=== PATIENT | male | born 1955 | race Hispanic/Latino ===

== ENCOUNTER 2017-08-25 16:28 | Inpatient (IN) | payer BC ==
[~2017-08-25] VITALS: Ht 185.4 cm; Wt 118.8 kg
[2017-08-25] MEDS ORDERED: HYDRALAZINE HCL 20 MG/ML VIAL IV ONE (16:45)
[2017-08-25] MEDS ORDERED: LIDOCAINE JELLY 2% 10ML URO-JET ONE (16:55)
[2017-08-25] MEDS ORDERED: HYDROMORPHONE 1MG/1ML INJ IV STA ×2 (17:05→19:17)
[2017-08-25 17:21] LABS: BASOPHILS # (AUTO) 0.1 (0.0-0.1); BASOPHILS % 0.3 % (0.0-1.0); EOSINOPHILS # (AUTO) 0.1 (0.0-0.4); EOSINOPHILS % 0.4 % (0.0-6.0); HEMATOCRIT 48.4 % (38.2-49.6); HEMOGLOBIN 16.5 g/dL (14.0-18.0); LYMPHOCYTES % 5.9 % (18.0-39.1); MEAN CORPUSCULAR HEMOGLOBIN 30.3 pg (28-32); MEAN CORPUSCULAR HGB CONC 34.1 g/dL (31-35); MEAN CORPUSCULAR VOLUME 88.8 fL (81-99); MONOCYTES # (AUTO) 2.1 (0.2-0.8); MONOCYTES % 12.6 % (4.4-11.3); NEUTROPHILS # (AUTO) 13.4 (2.1-6.9); NEUTROPHILS % 79.9 % (38.7-80.0); PLATELET COUNT 190 x10e3/uL (140-360); RED BLOOD COUNT 5.45 x10e6/uL (4.3-5.7)
[2017-08-25 17:22] LABS: CLARITY,URINE SL CLOUDY (CLEAR); COLOR,URINE YELLOW (YELLOW); KETONES,URINE NEGATIVE (NEGATIVE); LEUKOCYTE ESTERASE ,URINE 2+ (NEGATIVE); NITRITE,URINE NEGATIVE (NEGATIVE); URINE UROBILINOGEN 1 mg/dL (0.2 - 1)
[2017-08-25] MEDS ORDERED: SODIUM CHLORIDE 0.9% 1000ML 1,000 ML ONE (17:22)
[2017-08-25 17:23] LABS: BILIRUBIN,URINE 1+ (NEGATIVE); PROTEIN,URINE DIPSTICK 1+ (NEGATIVE)
[2017-08-25 17:35] LABS: ANION GAP 11.2 mmol/L (8-16); CALCIUM 8.8 mg/dL (8.4-10.2); CREATININE, SERUM 1.36 mg/dL (0.72-1.25); POTASSIUM 4.2 mmol/L (3.5-5.1)
[2017-08-25 17:37] LABS: EPITHELIAL CELLS,URINE RARE /LPF; WBC,URINE (MAN) 21-50 /HPF (0-5)
[2017-08-25 18:22] LABS: LYMPHOCYTES % (MANUAL) 4 % (19-48); MONOCYTES % (MANUAL) 6 % (3.4-9.0); NEUTROPHILS % (MANUAL) 87 % (40-74); PLATELET ESTIMATE ADEQUATE; PLATELET MORPHOLOGY COMMENT NORMAL; RBC MORPHOLOGY COMMENT NORMAL
--- NOTE | 2017-08-25 19:10 | Diagnostic Imaging Report ---
PROCEDURE:CT ABDOMEN AND PELVIS WITH CONTRAST COMPARISON:None. INDICATIONS:BLADDER PAIN, UNABLE TO URINATE TECHNIQUE: Multidetector CT scanning of the abdomen and pelvis was performed after the administration of 100 cc of nonionic contrast. Coronal and sagittal reformations were obtained. Routine protocol performed. DLP: 806.33 mGy*cm FINDINGS: Lung bases: Clear. There are small fat containing bilateral Bochdalek hernias. Visualized portion of the mediastinum is unremarkable. Liver: Diffusely fatty replaced. The right lobe measures 20 cm in length. No mass. Biliary: Gallbladder and biliary tree are normal. Spleen: Normal in size and attenuation without mass. Pancreas: Mild fatty atrophy without mass or ductal dilatation. Adrenal Glands: No mass. Kidneys: Symmetric enhancement. No hydronephrosis or perinephric inflammation. No evidence of mass. Gastrointestinal: The stomach is collapsed. Small bowel is normal in diameter with normal wall thickness. A few diverticula are present in the colon. The appendix is normal. Vasculature: Aorta IVC are normal in diameter. No atherosclerotic calcifications. Peritoneum/Retroperitoneum: No lymphadenopathy, free fluid, or fluid collection. Bladder: Collapsed around a Marte catheter. The sesay are diffusely thickened. No ureteral dilatation or periureteral inflammation. The prostate gland measures 6.5 x 0.3 x 7.6 cm. There is mild edema associated with the seminal vesicles without enhancing fluid collection. Musculoskeletal: There are mild degenerative changes of the spine consistent with age. No lytic or blastic lesions. The soft tissues are unremarkable. CONCLUSION: 1. Marked prostate hypertrophy and bladder wall thickening suggestive of outlet reduction. This could be the result of prostate hypertrophy with superimposed prostatitis and seminal vesiculitis. Intraluminal bladder mass cannot be excluded. 2. No hydroureteronephrosis. 3. Hepatic steatosis and hepatomegaly. 4. No bowel obstruction or inflammation. Normal appendix. Dictated by: Ganesh Christie M.D. on 08/25/2017 at 19:09 Electronically approved by: Ganesh Christie M.D. on 08/25/2017 at 19:09
--- OUTSIDE RECORDS SUMMARY | 2017-08-25 19:40 | XMS REPORT ---
Author Author [facility] Address Unknown Phone Unavailable Care Team Providers Care Engineering Director Name Role Phone ANGEL CASTILLO Unavailable Unavailable Problems This patient has no known problems. Allergies, Adverse Reactions, Alerts This patient has no known allergies or adverse reactions. Medications This patient has no known medications. Results Test Description Test Time Test Comments Text Results Atomic Results Result Comments CT ABDOMEN/PELVIS W [place] [address] Patient Name: ANGEL TENA MR #: [id number] : 1955 Age/Sex: 62/M Req #: [id number] Adm Physician: Ordered by: PRISCILA NEAL HANDLE MAKER Report #: [id number] Location: ER Room/Bed: Procedure: [id number] CT/CT ABDOMEN/PELVIS W Exam Date: 08/25/17 Exam Time: 1826 REPORT STATUS: Signed PROCEDURE: CT ABDOMEN AND PELVIS WITH CONTRAST COMPARISON: None. INDICATIONS: BLADDER PAIN, UNABLE TO URINATE TECHNIQUE: Multidetector CT scanning of the abdomen and pelvis was performed after the administration of 100 cc of nonionic contrast. Coronal and sagittal reformations were obtained. Routine protocol performed. DLP: 806.33 mGy*cm FINDINGS: Lung bases: Clear. There are small fat containing bilateral Bochdalek hernias. Visualized portion of the mediastinum is unremarkable. Liver: Diffusely fatty replaced. The right lobe measures 20 cm in length. No mass. Biliary: Gallbladder and biliary tree are normal. Spleen: Normal in size and attenuation without mass. Pancreas: Mild fatty atrophy without mass or ductal dilatation. Adrenal Glands: No mass. Kidneys: Symmetric enhancement. No hydronephrosis or perinephric inflammation. No evidence of mass. Gastrointestinal: The stomach is collapsed. Small bowel is normal in diameter with normal wall thickness. A few diverticula are present in the colon. The appendix is normal. Vasculature: Aorta IVC are normal in diameter. No atherosclerotic calcifications. Peritoneum/Retroperitoneum : No lymphadenopathy, free fluid, or fluid collection. Bladder: Collapsed around a Marte catheter. The sesay are diffusely thickened. No ureteral dilatation or periureteral inflammation. The prostate gland measures 6.5 x 0.3 x 7.6 cm. There is mild edema associated with the seminal vesicles without enhancing fluid collection. Musculoskeletal: There are mild degenerative changes of the spine consistent with age. No lytic or blastic lesions. The soft tissues are unremarkable. CONCLUSION: 1. Marked prostate hypertrophy and bladder wall thickening suggestive of outlet reduction. This could be the result of prostate hypertrophy with superimposed prostatitis and seminal vesiculitis. Intraluminal bladder mass cannot be excluded. 2. No hydroureteronephrosis. 3. Hepatic steatosis and hepatomegaly. 4. No bowel obstruction or inflammation. Normal appendix. Dictated by: Mary Christie M.D. on 08/25/2017 at 19:09 Electronically approved by: Mary Christie M.D. on 08/25/2017 at 19:09 Dictated By: MARY CHRISTIE MD 08 Transcribed By: HECTOR on 08/25/171908 COPY TO: PRISCILA NEAL NP CR - XRAY ARTHROGRAM SHOULDER LT / INJECTION CLINICAL INDICATION: M75.122 Complete rotatr-cuff tear/ruptr of left shoulder, not traumaTECHNIQUE: Risks and benefits of the examination were discussed with the patient. Informed consent was obtained. The patient was prepped and draped in the usual sterile fashion. Local anesthesia was affected with lidocaine 1% without epinephrine, administered subcutaneously. A 25 gauge needle was directed into the left glenohumeral joint under fluoroscopic guidance via anterior approach. A small amount of nonionic contrast was injected, demonstrating intra-articular position of needle tip. Subsequently, approximately 10 ml Gadolinium solution ( gadolinium in normal saline, 1:200) was injected into the joint without incident. Multiple spot films were obtained. No complications were encountered.Total fluoroscopy time: 0.2 minutesTotal number images: SixFINDINGS: COMPARISON: NoneContrast communication between the glenohumeral joint and subacromial subdeltoid bursa is present.IMPRESSION:Technically successful intra- articular gadolinium injection, left shoulder. Contrast communication between the glenohumeral joint and subacromial subdeltoid bursa, consistent with full- thickness rotator cuff tear.Post arthrogram MRI of left shoulder is reported separately. MRI SHOULDER JNT LT W CLINICAL INDICATION: M75.102 Unsp rotatr-cuff tear/ruptr of left shoulder, not traumaMODALITY: Avanto 1.5 Jenniffer 18 channel MRITECHNIQUE: Multiplanar multisequence MRI of the left shoulder was performed following intra-articular gadolinium injection. Arthrogram is reported separately .IMPRESSION:1. Mild to moderate supraspinatus tendinosis with superimposed 8.5 mm diameter full-thickness tear at the anterior tendon footprint.2. Mild acromioclavicular arthrosis without undersurface spurring.FINDINGS:COMPARISON: None.OSSEOUS ACROMIAL OUTLET: Type 2 acromion is present, with mild lateral downsloping. Mild acromioclavicular arthrosis is present without undersurface spurring.ROTATOR CUFF: Mild to moderate supraspinatus tendinosis is present. Full-thickness tear is present involving the anterior tendon footprint, measuring 8.5 mm in width with 8.5 mm gap. Posterior fibers of the tendon remain intact.. Infraspinatus, teres minor and subscapularis tendons are intact.BICEPS TENDON, LABRUM AND CAPSULAR STRUCTURES: Emir appear intact. Long head biceps tendon is intact. The biceps anchor appears unremarkable.OSSEOUS STRUCTURES: No fractures or destructive osseous lesions are detected. Marrow signal is unremarkable.MISCELLANEOUS FINDINGS: None.
[2017-08-25] MEDS: CEFTRIAXONE SOD 1 GM VIAL IV SCH (19:51)
[2017-08-25] MEDS ORDERED: IOPAMIDOL 370 MG/ML 200 ML INFUS..BTL INJ ONE (20:33)
[2017-08-25] MEDS ORDERED: SODIUM CHLORIDE 0.9% 50ML 50 ML ONE (20:33)
[2017-08-25] MEDS: OXYBUTYNIN CHLORIDE 5 MG TAB PO SCH (21:03)
[2017-08-25 21:30] VITALS: BP 125/56
[2017-08-25 22:12] VITALS: BP 125/56
[2017-08-25] MEDS: SODIUM CHLORIDE 0.9% 1000ML 1,000 ML IV SCH (22:52)
[2017-08-25] MEDS: MORPHINE SULFATE 2 MG/ML SYR IV PRN (22:59)
[2017-08-25] MEDS: ACETAMINOPHEN 325 MG TAB PO PRN (23:22)
[2017-08-26] VITALS (8 sets, daily range): BP systolic 94–154; BP diastolic 63–84
[2017-08-26] MEDS: MORPHINE SULFATE 2 MG/ML SYR IV PRN ×2 (04:59→11:50)
[2017-08-26] MEDS: SODIUM CHLORIDE 0.9% 1000ML 1,000 ML IV SCH ×3 (06:36→21:01)
--- NOTE | 2017-08-26 07:30 | History and Physical ---
A 62-year-old male comes in with pain on urination and also fever and chills. HISTORY OF PRESENT ILLNESS: This is Mr. Colvin with a history of diabetes mellitus, hypertension, who was in his usual state of health until 2 days prior to admission. The patient started to have chills and fever, and temperature of 102. Came in to see his primary care physician, and then came into the emergency room and was found to have acute prostatitis and was admitted for the same. PAST MEDICAL HISTORY: History of diabetes mellitus, history of hypertension. Also, includes epididymitis and prostatitis. He also has a history of benign prostatic hypertrophy. MEDICATIONS: He takes at home are metformin is what he knows. He also takes antihypertensive, which he does not know. SURGICAL HISTORY: History of neck surgery, right hand surgery, right knee surgery. FAMILY HISTORY: Diabetes in mother and sister. Congestive heart failure in mother and cardiac disease in father. ALLERGIES: NO DRUG ALLERGIES KNOWN. REVIEW OF SYSTEMS: Negative for chest pain or shortness of breath. Positive nausea. No vomiting. No diarrhea. No constipation. No rectal bleeding. Positive for dysuria and urinary frequency, and urinary retention. PHYSICAL EXAMINATION GENERAL: The patient is alert and oriented times 3. In pain because of the urinary spasms. VITAL SIGNS: Temperature is 98.9, pulse rate 118, blood pressure 94/63, pulse ox 98%. HEENT: Normocephalic and atraumatic. Pupils equal and reactive. LUNGS: Clear to auscultation bilaterally. ABDOMEN: Tender suprapubically. No CVA tenderness present. EXTREMITIES: No clubbing. No cyanosis. No edema. Abdominal CT showed marked prostatic hypertrophy and bladder wall thickening. LABORATORY TESTS: White count is 16,000, hemoglobin 16.5, hematocrit 48.5. Neutrophil count was 87. Chemistry: Sodium of 135, BUN 16 and creatinine 1.3. GFR of 53. CT scan as mentioned above. UA shows white count and rbcs present. Urine culture is pending. ASSESSMENT: Urosepsis. The patient has been started on Rocephin right now. Also, has a urinary catheter in. Consult with urology has been done. We might have to change his antibiotics. Will put him also on Flomax 0.4 mg. He is on Ditropan already. Further recommendations per clinical course. Will also increase his fluids. Further recommendations per clinical course. Will continue to monitor the patient. Job#: [id number] JENNY
[2017-08-26] MEDS: CEFTRIAXONE SOD 1 GM VIAL IV SCH ×2 (07:44→18:53)
[2017-08-26] MEDS: OXYBUTYNIN CHLORIDE 5 MG TAB PO SCH (07:44)
--- NOTE | 2017-08-26 09:24 | Consultation ---
DATE OF CONSULTATION: August 26, 2017 UROLOGY CONSULTATION REASON FOR CONSULTATION: Acute prostatitis and BPH. HISTORY OF PRESENT ILLNESS: Sanchez Colvin is a 62-year-old man who has never seen a urologist. The patient had some BPH symptomatology, and was begun on Flomax as an outpatient. The patient stopped the Flomax due to his feeling that it was not helping him. The patient denies any hematuria and urolithiasis. He denies ever having any urological surgery. The patient had a Marte catheter placed in the emergency room due to difficulty urinating. Only 200 mL of urine in the bladder. Since then, the patient has had bladder spasms and some discharge around the Marte catheter that is purulent. PAST MEDICAL AND SURGICAL HISTORY 1. Diabetes mellitus. 2. Hypertension. 3. History of epididymitis and prostatitis. 4. BPH. 5. Status post knee surgery. 6. Status post right metacarpal surgery. 7. Neck fusion. FAMILY HISTORY: Significant for diabetes and heart disease. SOCIAL HISTORY: The patient denies smoking, ethanol or drug use. 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 ALLERGIES: NONE KNOWN. CURRENT MEDICATIONS: Please refer to the MAR. REVIEW OF SYSTEMS: Consistent with the above history of present illness and past medical history. Otherwise, negative for all systems. PHYSICAL EXAMINATION GENERAL: A healthy appearing 62-year-old man lying in bed in no apparent distress. VITALS: He is currently afebrile. Vital signs are stable. ABDOMEN: Soft, nondistended and nontender without costovertebral angle tenderness. Kidneys not palpable. No hepatosplenomegaly. No obvious evidence of hernia. GENITOURINARY: Testes descended bilaterally. Testes and epididymis bilaterally palpably normal. The patient has normal uncircumcised male phallus with normal meatus with purulent discharge around the Marte catheter. The Marte catheter is draining clear urine out. For the remaining physical examination systems, please refer to the admission history and physical on the chart. LABORATORY STUDIES: Urine culture is pending. White blood cell count is elevated at 16,700, hemoglobin normal at 16.5 and platelets are 190,000. The patient's creatinine is slightly elevated at 1.36. I am presuming this is an acute finding. Urinalysis significant for microscopic hematuria, as well as pyuria. The patient's sodium is slightly low at 135. ASSESSMENT 1. Acute prostatitis. 2. Significant BPH. 3. Bladder spasms. 4. Incomplete bladder emptying. 5. Urethritis. 6. Leukocytosis. 7. Presumed acute renal insufficiency. 8. Urinary tract infection. 9. Microhematuria. 10. Mild hyponatremia. PLAN 1. The patient is on intravenous antibiotics. We will eagerly await the patient's culture and sensitivities, and adjust the antibiotics accordingly. In the meantime, I will add more broad coverage with Zosyn until we have the results of our cultures. 2. I will add B and O suppositories for the patient's bladder spasms in hopes that they will make him more comfortable. Thank you very much for involving us in the care of your patient. Will be happy to follow him along with you, as well as an outpatient. Job#: [id number] RI cc:GOLD MORENO MD
[2017-08-26] MEDS: BELLADONNA/OPIUM 60 MG SUPP PR PRN ×2 (10:04→22:00)
[2017-08-26] MEDS ORDERED: GLIMEPIRIDE1 MG PO (11:13)
[2017-08-26] MEDS ORDERED: ATORVASTATIN CA20 MG PO (11:13)
[2017-08-26] MEDS ORDERED: METFORMIN HCL500 MG PO (11:13)
[2017-08-26] MEDS ORDERED: BENICAR20 MG PO (11:13)
[2017-08-26] MEDS: ACETAMINOPHEN 325 MG TAB PO PRN (12:09)
[2017-08-26] MEDS: PIPER-TAZ 3.375 GM 50 ML IV SCH ×2 (14:00→22:00)
[2017-08-26] MEDS ORDERED: DEXTROSE 50% SYRINGE 50 ML IV PRN (15:00)
[2017-08-26] MEDS: INSULIN REGULAR, HUMAN 100 UNIT/1 ML 3ML VIAL SQ SCH ×2 (17:00→21:02)
[2017-08-26] MEDS: HYDROMORPHONE 2MG/ML INJ IV PRN (18:35)
[2017-08-26] MEDS: TAMSULOSIN HCL 0.4 MG CAP PO SCH (21:01)
[2017-08-27] VITALS (7 sets, daily range): BP systolic 113–161; BP diastolic 61–84
[2017-08-27] MEDS: ACETAMINOPHEN 325 MG TAB PO PRN ×2 (00:12→16:45)
[2017-08-27] MEDS: HYDROMORPHONE 2MG/ML INJ IV PRN ×4 (04:30→21:08)
[2017-08-27] MEDS: PIPER-TAZ 3.375 GM 50 ML IV SCH ×3 (06:00→21:05)
[2017-08-27 06:51] LABS: BASOPHILS % 0.3 % (0.0-1.0); EOSINOPHILS # (AUTO) 0.1 (0.0-0.4); EOSINOPHILS % 0.6 % (0.0-6.0); HEMATOCRIT 43.2 % (38.2-49.6); HEMOGLOBIN 14.3 g/dL (14.0-18.0); LYMPHOCYTES % 7.2 % (18.0-39.1); MEAN CORPUSCULAR HEMOGLOBIN 30.5 pg (28-32); MEAN CORPUSCULAR HGB CONC 33.1 g/dL (31-35); MEAN CORPUSCULAR VOLUME 92.1 fL (81-99); MONOCYTES # (AUTO) 1.5 (0.2-0.8); MONOCYTES % 10.7 % (4.4-11.3); NEUTROPHILS # (AUTO) 11.3 (2.1-6.9); NEUTROPHILS % 80.6 % (38.7-80.0); PLATELET COUNT 140 x10e3/uL (140-360); RED BLOOD COUNT 4.69 x10e6/uL (4.3-5.7); RED CELL DISTRIBUTION WIDTH 13.2 % (11.7-14.4)
[2017-08-27 07:14] LABS: ANION GAP 11.8 mmol/L (8-16); CALCIUM 9.3 mg/dL (8.4-10.2); CREATININE, SERUM 1.43 mg/dL (0.72-1.25); POTASSIUM 4.8 mmol/L (3.5-5.1)
[2017-08-27] MEDS ORDERED: DOCUSATE SODIUM LIQD 100 MG/10 ML UDC NG SCH (07:15)
[2017-08-27] MEDS ORDERED: DOCUSATE SODIUM LIQD 100 MG/10 ML UDC NG PRN (07:15)
[2017-08-27] MEDS: SODIUM CHLORIDE 0.9% 1000ML 1,000 ML IV SCH ×3 (07:18→19:20)
[2017-08-27] MEDS: CEFTRIAXONE SOD 1 GM VIAL IV SCH ×2 (07:18→21:05)
[2017-08-27] MEDS: INSULIN REGULAR, HUMAN 100 UNIT/1 ML 3ML VIAL SQ SCH ×4 (07:30→21:05)
[2017-08-27] MEDS: OLMESARTAN 20 MG TAB PO SCH (08:23)
[2017-08-27] MEDS: OXYBUTYNIN CHLORIDE 5 MG TAB PO SCH (08:24)
[2017-08-27 09:08] LABS: LYMPHOCYTES % (MANUAL) 10 % (19-48); MONOCYTES % (MANUAL) 8 % (3.4-9.0); NEUTROPHILS % (MANUAL) 82 % (40-74)
[2017-08-27 09:10] LABS: PLATELET MORPHOLOGY COMMENT NORMAL
[2017-08-27 09:11] LABS: PLATELET ESTIMATE SLIGHTLY DECREASED; RBC MORPHOLOGY COMMENT NORMAL
[2017-08-27] MEDS ORDERED: NON-FORMULARY MEDICATION PO SCH (12:45)
[2017-08-27] MEDS: PANTOPRAZOLE SOD 40 MG TABEC PO SCH (16:45)
[2017-08-27] MEDS: TAMSULOSIN HCL 0.4 MG CAP PO SCH (21:05)
[2017-08-28] VITALS (7 sets, daily range): BP systolic 116–141; BP diastolic 72–90
[2017-08-28] MEDS: HYDROMORPHONE 2MG/ML INJ IV PRN ×3 (05:27→13:43)
[2017-08-28] MEDS: PIPER-TAZ 3.375 GM 50 ML IV SCH ×3 (06:14→21:40)
[2017-08-28] MEDS: INSULIN REGULAR, HUMAN 100 UNIT/1 ML 3ML VIAL SQ SCH ×4 (07:30→21:40)
[2017-08-28] MEDS: SODIUM CHLORIDE 0.9% 1000ML 1,000 ML IV SCH ×3 (07:46→22:31)
[2017-08-28] MEDS: CEFTRIAXONE SOD 1 GM VIAL IV SCH ×2 (09:00→21:40)
[2017-08-28] MEDS: PANTOPRAZOLE SOD 40 MG TABEC PO SCH ×2 (09:00→17:04)
[2017-08-28] MEDS: OLMESARTAN 20 MG TAB PO SCH (09:00)
[2017-08-28] MEDS: DOCUSATE SODIUM 100 MG CAP PO SCH ×2 (09:00→17:04)
[2017-08-28] MEDS: OXYBUTYNIN CHLORIDE 5 MG TAB PO SCH (09:00)
[2017-08-28] MEDS ORDERED: BISACODYL 10 MG SUPP PR NR (17:45)
[2017-08-28] MEDS: TAMSULOSIN HCL 0.4 MG CAP PO SCH (21:40)
[2017-08-29] VITALS: BP 140/74
[2017-08-29 04:00] VITALS: BP 127/79
[2017-08-29] MEDS: PIPER-TAZ 3.375 GM 50 ML IV SCH (06:04)
[2017-08-29] MEDS: SODIUM CHLORIDE 0.9% 1000ML 1,000 ML IV SCH (06:31)
[2017-08-29 07:14] LABS: BASOPHILS % 0.5 % (0.0-1.0); EOSINOPHILS # (AUTO) 0.2 (0.0-0.4); EOSINOPHILS % 2.6 % (0.0-6.0); HEMATOCRIT 39.9 % (38.2-49.6); HEMOGLOBIN 13.5 g/dL (14.0-18.0); LYMPHOCYTES # (AUTO) 0.9 (1.0-3.2); LYMPHOCYTES % 12.2 % (18.0-39.1); MEAN CORPUSCULAR HEMOGLOBIN 30.2 pg (28-32); MEAN CORPUSCULAR HGB CONC 33.8 g/dL (31-35); MEAN CORPUSCULAR VOLUME 89.3 fL (81-99); MONOCYTES # (AUTO) 1.3 (0.2-0.8); MONOCYTES % 17.8 % (4.4-11.3); NEUTROPHILS # (AUTO) 4.8 (2.1-6.9); NEUTROPHILS % 65.9 % (38.7-80.0); PLATELET COUNT 174 x10e3/uL (140-360); RED BLOOD COUNT 4.47 x10e6/uL (4.3-5.7); RED CELL DISTRIBUTION WIDTH 13.2 % (11.7-14.4)
[2017-08-29 07:41] LABS: ANION GAP 11.8 mmol/L (8-16); BLOOD UREA NITROGEN 10 mg/dL (7-26); BUN/CREATININE RATIO 9 (6-25); CALCIUM 8.8 mg/dL (8.4-10.2); CARBON DIOXIDE 26 mmol/L (22-29); CHLORIDE 101 mmol/L (98-107); CREATININE, SERUM 1.07 mg/dL (0.72-1.25); EST GLOMERULAR FILTRATION RATE > 60 ML/MIN (60-); GLUCOSE 147 mg/dL (74-118); POTASSIUM 3.8 mmol/L (3.5-5.1); SODIUM 135 mmol/L (136-145)
[2017-08-29 08:00] VITALS: BP 120/70
[2017-08-29] MEDS: CEFTRIAXONE SOD 1 GM VIAL IV SCH (08:17)
[2017-08-29] MEDS: DOCUSATE SODIUM 100 MG CAP PO SCH (08:17)
[2017-08-29] MEDS: OLMESARTAN 20 MG TAB PO SCH (08:17)
[2017-08-29] MEDS: OXYBUTYNIN CHLORIDE 5 MG TAB PO SCH (08:18)
[2017-08-29] MEDS: PANTOPRAZOLE SOD 40 MG TABEC PO SCH (08:18)
[2017-08-29] MEDS ORDERED: CIPRO500 MG PO (08:31)
[2017-08-29] MEDS ORDERED: FLOMAX0.4 MG PO (08:32)
--- NOTE | 2017-10-14 00:16 | Discharge Summary ---
The patient came in with acute prostatitis, acute sepsis, urinary tract infection. The patient was started on Zosyn and Rocephin. The patient had also prostatitis. A consult with Dr. Cramer was done. The patient did have leukocytosis and the patient was given IV fluids. Culture and sensitivity was sent. The patient did get better in 1 to 2 days with fluid resuscitation. The patient's blood culture was negative. The urine culture showed gram-positive bacteria. Enterococcus was cultured and the patient was discharged home in a stable condition and p.o. antibiotics. FINAL DIAGNOSES 1. Sepsis/urosepsis. 2. Leukocytosis. 3. Prostatitis. 4. BPH. 5. Hypertension. 6. Diabetes mellitus. Follow up with primary care physician for followup and also needs culture as an outpatient. JESSICA BANDA MD Job#: [id number]
== END 2017-08-29 08:51 | disposition home or self-care (01) | DRG 872 ==
LOC: ER 16:28 → ERHOLD 19:38 → IMCU 21:16 → MED/SURG3 08-26 11:11
PROVIDERS: ADMIT Family Medicine; ATTEND Family Medicine
DX: A41.9 Sepsis, unspecified organism (principal); N41.0 Acute prostatitis; E87.1 Hypo-osmolality and hyponatremia; N30.01 Acute cystitis with hematuria; E11.65 Type 2 diabetes mellitus with hyperglycemia; N32.89 Other specified disorders of bladder; N34.2 Other urethritis; E86.0 Dehydration; N40.1 Benign prostatic hyperplasia with lower urinary tract symptoms; R33.8 Other retention of urine; D72.810 Lymphocytopenia; D72.829 Elevated white blood cell count, unspecified; R65.20 Severe sepsis without septic shock; I10 Essential (primary) hypertension; N28.9 Disorder of kidney and ureter, unspecified; R31.29 Other microscopic hematuria
CPT/HCPCS: 36415; 51700; 74177; 80048; 81001; 82948; 84152; 85025; 87040; 87070; 87086; 87186; 87205; 96361; 96376; 99284; J0696; J1170; J2270; J2543; J7030; Q9967

== ENCOUNTER → 2018-03-20 | Outpatient (CLI) | payer BC ==
[~2018-03-20] MED LIST: ATORVASTATIN CA20 MG PO; BENICAR20 MG PO; CIPRO500 MG PO; FLOMAX0.4 MG PO; GLIMEPIRIDE1 MG PO; METFORMIN HCL500 MG PO
--- NOTE | 2018-03-20 16:40 | Diagnostic Imaging Report ---
RIGHT HIP - 3 VIEWS HISTORY: Pain COMPARISON: None available. FINDINGS: Soft tissue attenuation partially limits sensitivity of the exam. Bones: No acute displaced fracture. Osseous alignment is within normal limits. Joints: Minimal bilateral degenerative changes of the hips. Soft tissues: The soft tissues appear unremarkable. IMPRESSION: 1. No acute radiographic abnormality. 2. Minimal osteoarthrosis. Signed by: Dr. Ryan Wing D.O., M.M.M. on 03/20/2018 4:37 PM
== END ==
LOC: RAD 15:49
PROVIDERS: ATTEND Family Medicine
DX: M25.551 Pain in right hip (principal)

== ENCOUNTER → 2018-04-20 | Outpatient (CLI) | payer BC ==
--- NOTE | 2018-04-20 17:49 | Diagnostic Imaging Report ---
EXAMINATION: CHEST 2 VIEWS INDICATION: Bronchitis. Cough COMPARISON: None FINDINGS: TUBES and LINES: None. LUNGS: Lungs are well inflated. Perihilar peribronchial hazy opacity could be due to bronchitis.. There is no evidence of pneumonia or pulmonary edema. PLEURA: No pleural effusion or pneumothorax. HEART AND MEDIASTINUM: The cardiomediastinal silhouette is unremarkable. BONES AND SOFT TISSUES: No acute osseous lesion. Soft tissues are unremarkable. UPPER ABDOMEN: No free air under the diaphragm. IMPRESSION: Perihilar peribronchial hazy opacity could be due to bronchitis Signed by: Dr. Donavon Mercedes M.D. on 04/20/2018 5:45 PM
== END ==
LOC: RAD 16:27
PROVIDERS: ATTEND Nurse Practitioner Acute Care
DX: R05 Cough (principal); J40 Bronchitis, not specified as acute or chronic
CPT/HCPCS: 71046